=== PATIENT | female | born 2005 | race Hispanic/Latino ===

== ENCOUNTER 2025-01-23 00:19 | Emergency (ER) | payer BC ==
[~2025-01-23] VITALS: Ht 160 cm; Wt 66.3 kg
[2025-01-23 00:20] VITALS: TEMP 98.2
--- NOTE | 2025-01-23 00:21 | NUR ---
UA CUP PROVIDED
--- NOTE | 2025-01-23 00:23 | ERN ---
ED Note History of Present Illness Stated Complaint: AND PAIN, N/V Chief Complaint: Abdominal Pain Time Seen by MD: 00:21 Allergies: Coded Allergies: No Known Allergies (Unverified Allergy, Unknown, 01/23/25) Past Medical History Past Medical History: No Pertinent History Surgical History: None LMP: Jan 11, 2025 Review of System Dictation Constitutional: Negative for fever,chills, and weight loss Eyes: Negative for injury, pain,redness, and discharge ENT: Negative for injury,pain or swelling Cardiovascular: Negative for chest pain, palpitations, and edema Respiratory: Negative for shortness of breath, cough, and wheezing, Abdomen/GI: Negative for abdominal pain, nausea, vomiting, diarrhea, and constipation Back: Negative for injury and pain : Negative for injury, bleeding and discharge MS/Extremity: Negative for injury and deformity Skin: Negative for rash, and discoloration Neuro: Negative for headache, weakness, numbness, tingling, and seizure Psych: Negative for suicide ideation, homicidal ideation, and hallucinations Initial Vital Sign VS Vital Signs Date Time Temp Pulse Resp B/P (MAP) Pulse Ox O2 Delivery O2 Flow Rate FiO2 01/23/25 00:20 98.2 89 18 122/59 97 Room Air 01/23/25 00:57 0 21 Physical Exam Dictation General: awake, alert, NAD Head/Face: Normocephalic, atraumatic Eyes: PERRL, EOMI, vision at baseline ENT: oral cavity clear, TMs clear, no signs of infection Neck: Trachea midline, supple, no nuchal rigidity Cardiovascular: RRR, normal S1/S2, No MRGs, no JVD Respiratory: CTAB, no respiratory distress, No rales or wheezes Abdomen: Soft, non-tender, non-distended, normal bowel sounds, no guarding or rebound. Skin: Warm, dry, normal turgor, no rash MS/Extremity: Pulses equal, no cyanosis, neurovascular intact, FROM Neuro: COAx4, GCS 15, strength 5/5, CN 2-12 intact, normal cerebellar exam, normal gait, Psych: Normal behavior, mood, and affect normal Results (Laboratory/Radiology) Laboratory/Radiology Laboratory Tests Test 01/23/25 00:22 01/23/25 00:24 01/23/25 00:37 Sodium Level 141 mmol/L (136-145) Potassium Level 3.6 mmol/L (3.5-5.1) Chloride Level 104 mmol/L (101-111) Carbon Dioxide Level 26 mmol/L (21-32) Blood Urea Nitrogen 13 mg/dL (7-18) Creatinine 0.6 mg/dL (0.5-1.0) Glomerular Filtration Rate Calc 132 mL/min (>90) Random Glucose 113 mg/dL (70-105) H Total Calcium 9.6 mg/dL (8.5-10.1) Total Bilirubin 0.8 mg/dL (0.2-1.0) Aspartate Amino Transf (AST/SGOT) 19 U/L (10-37) Alanine Aminotransferase (ALT/SGPT) 22 U/L (12-78) Alkaline Phosphatase 93 U/L (50-136) Total Protein 8.5 g/dL (6.0-8.3) H Albumin 4.3 g/dL (3.5-5.0) Lipase 24 U/L (16-77) Urine Color YELLOW (YELLOW) Urine Appearance CLEAR (CLEAR) Urine pH 5.5 (5.0-8.0) Urine Specific [place] 1.027 (1.001-1.031) Urine Protein 10 mg/dL (NEGATIVE) H Urine Glucose (UA) NEGATIVE mg/dL (NEGATIVE) Urine Ketones 100 mg/dL (NEGATIVE) H Urine Occult Blood SMALL (NEGATIVE) H Urine Nitrate NEGATIVE (NEGATIVE) Urine Bilirubin NEGATIVE mg/dL (NEGATIVE) Urine Urobilinogen 0.2 mg/dL (0.2-1.0) Urine Leukocyte Esterase NEGATIVE [place]/uL Urine RBC 11-25 /HPF (0-1) H Urine WBC 2-5 /HPF (0-1) H Urine Squamous Epithelial Cells FEW /HPF (0-2) Urine Bacteria None /HPF (None Seen) Urine HCG, Qualitative NEGATIVE (NEGATIVE) White Blood Count 14.8 K/uL (4.8-10.8) H Red Blood Count 4.77 MIL/uL (4.00-5.50) Hemoglobin 14.5 g/dL (12.0-16.0) Hematocrit 43.1 % (36-48) Mean Corpuscular Volume 90.4 fL (80-100) Mean Corpuscular Hemoglobin 30.4 pg (27.0-33.0) Mean Corpuscular Hemoglobin Concent 33.6 g/dL (32.0-36.0) Red Cell Distribution Width 12.2 % (11.0-15.5) Platelet Count 436 K/uL (130-400) H Mean Platelet Volume 9.6 fL (7.5-10.5) Immature Granulocyte % (Auto) 0.3 % (0-1) Neutrophils (%) (Auto) 83.8 % (40.0-77.0) H Lymphocytes (%) (Auto) 7.8 % (21.0-51.0) L Monocytes (%) (Auto) 5.1 % (3.0-13.0) Eosinophils (%) (Auto) 2.7 % (0.0-8.0) Basophils (%) (Auto) 0.3 % (0.0-5.0) Neutrophils # (Auto) 12.4 K/uL (1.8-7.7) H Lymphocytes # (Auto) 1.2 K/uL (1.0-4.8) Monocytes # (Auto) 0.8 K/uL (0.1-1.0) Eosinophils # (Auto) 0.40 K/uL (0.00-0.70) Basophils # (Auto) 0.04 K/uL (0.00-0.20) Absolute Immature Granulocyte (auto 0.05 K/uL (0-1) Nucleated Red Blood Cells 0.0 % (0.0-0.19) White Cell Morphology Comment See comments ED Course ED Course Orders Procedure Category Date Status Time Cbc With Differential LAB 01/23/25 Complete 00:22 Comprehensive LAB 01/23/25 Complete Metabolic Panel 00:22 ,Urine Test LAB 01/23/25 Complete 00:22 Urinalysis Profile LAB 01/23/25 Complete 00:22 Lactated Ringers PHA 01/23/25 Complete 1000ml (Lactated 00:30 Morphine 4mg Syg PHA 01/23/25 Complete (Morphine 4mg Syg) 00:30 Ondansetron 4mg Inj PHA 01/23/25 Complete (Zofran 4mg Inj) 00:30 Lipase LAB 01/23/25 Complete 00:22 Ct Abdomen/Pelvis W/O CT 01/23/25 Resulted Contrast 01:18 Current Medications Medications (Trade) Dose Ordered Sig/Judie Route PRN Reason Start Time Stop Time Status Last Admin Dose Admin Lactated Ringer's 1,000 ml @ 0 mls/hr ONCE ONCE IV 01/23/25 00:30 01/23/25 00:31 DC 01/23/25 00:41 Morphine Sulfate (morPHINE 4MG SYG) 4 mg ONCE ONCE IVP 01/23/25 00:30 01/23/25 00:31 DC 01/23/25 00:41 Ondansetron HCl (zoFRAN 4MG INJ) 4 mg ONCE ONCE IVP 01/23/25 00:30 01/23/25 00:31 DC 01/23/25 00:41 Vital Signs Date Time Temp Pulse Resp B/P (MAP) Pulse Ox O2 Delivery O2 Flow Rate FiO2 01/23/25 03:06 76 18 109/70 100 Room Air* 0 21 01/23/25 00:57 67 18 102/44 100 Room Air* 0 21 01/23/25 00:20 98.2 89 18 122/59 97 Room Air Medical Decision Making MDM MDM: Differential diagnosis: Rationale: Tests considered and ordered secondary to shared decision making include: Previous outside records reviewed: Old ER visits. Risk of complication and/or morbidity or mortality of patient management: None Medications-Per medication reconciliation Need for hospitalization: Patient does not meet criteria for hospitalization. Need for emergency major/minor surgery: No There are no social concerns with this patient. Prescription drug management Prescriptions will include symptomatic care Patient's prior external medical records from other ER visits were reviewed by me as indicated. Prior testing and results from previous visits were reviewed. Prior tests were taken into account with medical decision making and resource utilization, independent historian/historians were used to obtain complete medical history. I independently interpreted the test that were performed, results were reviewed by me and considered findings on radiology if ordered. Medical management and examination interpretation discussions were had by me with other qualified healthcare professionals as indicated for the patient's care. DX & DISP Disposition: Discharge Departure Impression: Primary Impression: Abdominal pain Additional Impression: Dermoid cyst Condition: Stable KARSTEN GRIGSBY MD Jan 23, 2025 00:23
--- NOTE | 2025-01-23 00:24 | NUR ---
DELAY IN BEDDING DUE TO PT IN RESTROOM COLLECTED UA SAMPLE
--- NOTE | 2025-01-23 00:26 | NUR ---
UA COLLECTED AND SENT
[2025-01-23 00:39] LABS: APPEARANCE,URINE CLEAR (CLEAR); GLUCOSE, URINE (UA) NEGATIVE (NEGATIVE); LEUKOCYTE ESTERASE ,URINE NEGATIVE Leu/uL (NEGATIVE); NITRATE,URINE NEGATIVE (NEGATIVE); OCCULT BLOOD,URINE SMALL (NEGATIVE)
[2025-01-23 00:40] LABS: ADD UA MICROSCOPIC YES
[2025-01-23 00:41] LABS: HCG,QUALITATIVE URINE NEGATIVE (NEGATIVE); SQUAMOUS EPITHELIAL CELL,UR FEW /HPF (0-2)
[2025-01-23] MEDS: LACTATED RINGERS 1000ML 1,000 ML IV ONE (00:41)
[2025-01-23 01:03] LABS: IMMATURE GRANULOCYTE ABSOLUTE 0.05 K/uL (0-1); NUCLEATED RED BLOOD CELLS 0.0 % (0.0-0.19); PLATELET COUNT (AUTO) 436 K/uL (130-400); RED BLOOD CELL COUNT(AUTO) 4.77 MIL/uL (4.00-5.50); RED CELL DISTRIBUTION WIDTH 12.2 % (11.0-15.5); WHITE BLOOD COUNT (AUTO) 14.8 K/uL (4.8-10.8)
[2025-01-23 01:14] LABS: CREATININE 0.6 mg/dL (0.5-1.0); GLOMERULAR FILTR. RATE CALC 132.0 mL/min (>90); GLUCOSE,RANDOM 113.0 mg/dL (70-105); SODIUM SERUM 141.0 mmol/L (136-145); UREA NITROGEN, BLOOD 13.0 mg/dL (7-18)
[2025-01-23 01:18] LABS: ASPARTATE AMINOTRANSFERASE 19.0 U/L (10-37); TOTAL PROTEIN, SERUM 8.5 g/dL (6.0-8.3)
--- NOTE | 2025-01-23 02:49 | HMCIMG ---
EXAM: CT Abdomen and Pelvis without IV contrast CLINICAL HISTORY: Epigastric pain. TECHNIQUE: Thin collimated axial CT images of the abdomen and pelvis were obtained with sagittal and coronal reformatted images also submitted. CT scan is done according to ALARA (As Low As Reasonably Achievable). CONTRAST: None. COMPARISON: None. FINDINGS: Unremarkable visualized lung parenchyma. No focal abnormality within the liver, gallbladder, pancreas, spleen, adrenals, or kidneys. Nondilated fluid-filled small and large bowel loops with subtle mucosal thickening, concerning acute enterocolitis. Bowel loops are normal in caliber without obstruction or ileus. The appendix is normal. There is no abnormality within the urinary bladder. There is a 7 x 6 x 7 cm mixed fat and soft tissue density lesion with calcification in the pelvic area, anterior to the uterus, and possibly arising from the right ovary. Grossly unremarkable left ovary. Unremarkable uterus. Abdominal and pelvic vessels are grossly unremarkable. No lymphadenopathy. No free fluid. No pneumoperitoneum. There is no acute osseous abnormality. IMPRESSIONS: Questionable mild acute enterocolitis. There is a dermoid cyst in the pelvis, possibly arising from the right ovary. /Rodney
[2025-01-23 03:06] VITALS: BP 109/70; PULSE 76; RESP 18; O2SAT 100
== END 2025-01-23 04:00 | disposition home or self-care (01) ==
LOC: EDH 00:19
DX: R10.9 Unspecified abdominal pain (principal); D36.9 Benign neoplasm, unspecified site
CPT/HCPCS: 99284; 74176; 96374; 96361; 96375; 80053; 83690; 85025; 81001; 81025; 36415; J7120; J2405; J2270